=== PATIENT | female | born 1955 | race African-American/Black ===

== ENCOUNTER 2018-12-13 11:08 | Inpatient (IN) ==
[2018-12-13 14:22] LABS: BASO# 0.03 X1000 (0.0-0.2); BASO% 0.7 % (0.0-0.8); EOS# 0.01 X1000 (0.0-0.7); EOS% 0.2 % (0.0-10.0); HEMATOCRIT 37.6 % (37.0-47.0); HEMOGLOBIN 12.3 g/dL (12.0-16.0); LYMPH# 0.63 X1000 (1.2-3.4); LYMPH% 15.3 % (20.5-51.1); MCH 30.4 PG (27-31); MCHC 32.7 g/dL (33-37); MCV 92.8 FL (81-99); MONO# 0.16 X1000 (0.11-0.59); MONO% 3.9 % (1.7-9.3); MPV 10.3 FL (7.4-10.4); NEUT# 3.29 X1000 (1.4-6.5); NEUT% 79.9 % (42.2-75.2); PLT 143 X1000 (130-400); RBC 4.05 XMIL (4.2-5.4); RDW 13.7 % (11.5-14.5); WBC 4.12 X1000 (4.8-10.8)
[2018-12-13] MEDS ORDERED: NS 1,000 ML ONE (14:31)
[2018-12-13 14:57] LABS: ALB/GLOB RATIO 1.3; ALBUMIN 3.8 g/dL (3.5-5.0); CALCIUM 9.8 mg/dL (8.8-10.2); CREATININE 1.2 mg/dL (0.5-0.9); POTASSIUM 3.4 mmol/L (3.5-5.1); TOTAL BILIRUBIN 0.51 mg/dL (0.20-1.00); TOTAL PROTEIN 6.8 g/dL (6.3-8.3)
[2018-12-13] MEDS ORDERED: ZOFRAN IV ONE (15:43)
[2018-12-13] MEDS ORDERED: TORADOL IV ONE (15:43)
[2018-12-13] MEDS ORDERED: NS 1,000 ML IV ONE ×2 (15:43→17:57)
--- NOTE | 2018-12-13 15:57 | EKG Report ---
Test Performed on : 12/13/2018 12:51:44 PM Test Reason : ED. NO order in [place] Blood Pressure : / mmHG Vent. Rate : 068 BPM Atrial Rate : 068 BPM P-R Int : 146 ms QRS Dur : 082 ms QT Int : 430 ms P-R-T Axes : 031 -02 000 degrees QTc Int : 457 ms Normal sinus rhythm. Minimal voltage criteria for LVH, may be normal variant Borderline ECG No previous ECGs available Unconfirmed Result
--- NOTE | 2018-12-13 17:54 | PROVIDER DOCUMENTATION ---
This chart was entered by Idalia Rodriguez Scribe, acting as scribe for Jered Contreras MD. HPI-General Adult - General Chief Complaint: B/P Problems Stated Complaint: HYPOTENSION Time Seen by Provider: 12/13/18 14:05 Source: patient Allergies/Adverse Reactions: Patient Allergies Allergy/AdvReac Type Severity Reaction Status Date / Time No Known Allergies Allergy Verified 12/13/18 11:36 - History of Present Illness -Gen Adult Nature of Presenting Problems: Patient is a 63 year old female who presents to the ED with flu like symptoms. Patient states symptoms of cough, nasal drainage, fever, diarrhea and abdominal pain. Patient states symptoms started this morning. Patient denies nausea and vomiting. Patient's blood pressure was 72/53 on arrival. Patient's daughter states patient has had sick contact to grandchildren. Location of Pain/Injury: reports: abdomen Pain Radiation: reports: no radiation Quality of Pain: reports: aching Severity: reports: mild Onset/Duration: reports: this morning Timing: reports: still present Context/Activities at Onset: reports: light activity Modifying Factors: improves with: nothing Associated Symptoms: reports: cough, diarrhea, fever/chills (fever), sinus congestion/drainage (drainage) Similar Symptoms Previously?: No Recently seen or treated by another doctor?: No Review of Systems - Adult - REVIEW OF SYSTEMS - ADULT Constitutional: reports: fever. denies: chills, fatique Eyes: reports: no symptoms reported Ears, Nose, Mouth & Throat: reports: sinus problem (drainage). denies: ear pain , nose pain, throat pain Cardiovascular: reports: no symptoms reported Respiratory: reports: cough. denies: shortness of breath, wheezing Gastrointestinal: reports: abdominal pain, diarrhea. denies: nausea, vomiting Genitourinary: reports: no symptoms reported Musculoskeletal: reports: no symptoms reported Integumentary: reports: no symptoms reported Neurological: reports: no symptoms reported Psychiatric: reports: no symptoms reported Endocrine: reports: no symptoms reported Hematologic/Lymphatic: reports: no symptoms reported Allergic/Immunologic: reports: no symptoms reported All Other Systems: Reviewed and Negative Past History - Adult - PAST MEDICAL HISTORY-ADULT Review of Records: reports: Nursing Assessment Review, Medications Reviewed, Social history reviewed & non-contributory. Major Childhood Illnesses: reports: denies history Cardiovascular: reports: HTN Respiratory: reports: denies history Gastrointestinal: reports: denies history Obstetrical/Gynecological: reports: denies history Genitourinary: reports: denies history Musculoskeletal: reports: denies history Neurological: reports: denies history Psychiatric: reports: denies history Endocrine/Immune: reports: Diabetes Other Conditions: reports: denies history - PRIOR SURGERIES/PROCEDURES Surgical/Procedure History: reports: reviewed, not pertinent - IMMUNIZATION STATUS Childhood Immunizations: See Nurse Assessment Flu Vaccine: See Nurse Assessment - FAMILY HISTORY Family History: reviewed, not pertinent - SOCIAL HISTORY Smoking: denies Substance Use: denies Physical Exam-General - PHYSICAL EXAM-ADULT Initial Vital Signs Reviewed: Yes - CONSTITUTIONAL General Appearance: alert, no apparent distress - HEAD, EARS, NOSE, MOUTH & THROAT HENMT: moist mucous membranes - NECK Neck: normal inspection - RESPIRATORY Respiratory: chest non-tender, lungs clear, normal breath sounds - CARDIOVASCULAR Cardiovascular: normal peripheral pulses, regular rate, rhythm - GASTROINTESTINAL (ABDOMEN) Abdominal Exam: normal bowel sounds, non tender, soft - MUSCULOSKELETAL Back Exam: normal inspection Extremity: non-tender, normal inspection - SKIN Integumentary: normal color, normal turgor, warm/dry - NEUROLOGIC Neurologic: grossly normal, no motor/sensory deficits - PSYCHIATRIC Psych/Mental Status: normal mood/affect, oriented x 3 Progress - PLAN OF CARE/RESULTS Progress/Plan/Lab Results: Vital Signs - 8 hr 12/13/18 11:31 Temperature 97.2 F L Pulse Rate 70 Respiratory Rate 16 Blood Pressure 75/42 O2 Sat by Pulse Oximetry 90 L Laboratory Results - last 24 hr 12/13/18 13:20 WBC 4.12 L RBC 4.05 L Hgb 12.3 Hct 37.6 MCV 92.8 MCH 30.4 MCHC 32.7 L RDW Std Deviation 13.7 Plt Count 143 MPV 10.3 Immature Gran % (Auto) 0.0 Neut % (Auto) 79.9 H Lymph % (Auto) 15.3 L [place] % (Auto) 3.9 Eos % (Auto) 0.2 Baso % (Auto) 0.7 Immature Gran # (Auto) 0.00 Neut # (Auto) 3.29 Lymph # (Auto) 0.63 L [place] # (Auto) 0.16 Eos # (Auto) 0.01 Baso # (Auto) 0.03 Orders Category Date Time Status Saline Loc DIRECTED Care 12/13/18 14:05 Active NPO Diet 12/13/18 14:05 Active AMYLASE [CHEM] Stat Lab 12/13/18 13:20 Received CBC WITH ELECTRONIC DIFF [HEME] Stat Lab 12/13/18 13:20 Completed COMPREHENSIVE METABOLIC PANEL [CHEM] Stat Lab 12/13/18 13:20 Received LIPASE [CHEM] Stat Lab 12/13/18 13:20 Received URINALYSIS W/POSS RFLX CULT [URINALYSIS] Stat Lab 12/13/18 14:05 Uncollected Result Diagrams: 12/13/18 13:20 12/13/18 13:20 - EKG 1 Time of EKG reading by physician:: 12:51 EKG Read and Signed by:: Jered Contreras EKG Interpretation (*Must complete 3 of following elements*): Abnormal Rate: 68 Rhythm: normal sinus rhythm [place]: normal DC Interval: normal Comments: minimal voltage criteria for LVH, may be normal variant - CONSULTS/PCP/HOSPITALIST Notification #1 *Consult/PCP/Hospitalist*: DR DICKENS Time Discussed: 19:32 Consult Disposition: Admit Departure - Departure Date of Disposition Decision: 12/13/18 Time of Disposition Decision: 19:31 DIAGNOSIS: Diarrhea, Hypotension Disposition: ADMITTED INPATIENT 09 Certified Medical Emergency: Emergent Condition: Stable Referrals and Follow-Ups: None,PCP [NON-STAFF PROVIDER] - - Critical Care Note This patient required my direct & personal management of CC.: Yes Total Time (mins): 36 Critical Care Statement: This patient required my direct personal management to treat or rule out processes, the absence of which, could potentiallly result in sudden, clinically significant life or limb threatening deterioration. Attestation - Physician/ WILL Attestation The physician spent face to face time with patient:: Yes Advanced Practice Provider documentation review:: Supervising physician onsite and consulted in the evaluation and care of this patient. The physician did have a face to face encounter with the patient. This chart was documented by the indicated scribe, (Idalia Rodriguez Scribe) and accurately reflects the services I performed and decisions made by me, Jered Contreras MD, as attested by the provider's signature.
[2018-12-13] MEDS ORDERED: TYLENOL PO PRN (20:28)
[2018-12-13] MEDS ORDERED: ZOFRAN IV PRN (20:28)
[2018-12-13] MEDS: HUMALOG SUBQ SCH (21:00)
--- NOTE | 2018-12-13 21:04 | Diag Imaging Result Doc PS360 ---
EXAM: CT THORAX W/O CONTRAST 12/13/2018 HISTORY: pneumonia suspected TECHNIQUE: This exam was performed using automated exposure control, adjustment of mA or kV according to patient size, and/or use of iterative reconstruction technique. COMMENT: There are no previous studies available for comparison. There are multiple subcutaneous varicosities over the chest and upper abdomen. There is skin thickening over the left breast. This is presumably due to previous lumpectomy and radiation. There are patchy groundglass opacities present in the right upper and lower lobes as well as the middle lobe and to some extent in both lower lobes. There is bronchiectasis and fibrosis present in the anterior left upper lobe. There is nonspecific right paratracheal and aorticopulmonary window nodes. There is subcarinal adenopathy. There are degenerative disc changes in the lumbar thoracic spine. IMPRESSION: Patchy pneumonitis/pneumonia particularly in the right upper lobe. Other nonacute findings as described above. Electronically signed by Garland Bronson 12/13/2018 9:01 PM
[2018-12-13 21:06] LABS: HEMOGLOBIN A1C 5.7 % (4.8-6.0)
[2018-12-13] MEDS: ZOSYN 3.375 GM in NS 50 ML IV SCH (21:47)
[2018-12-13] MEDS: LOVENOX SUBQ SCH (21:47)
--- NOTE | 2018-12-13 23:49 | HISTORY AND PHYSICAL ---
PRIMARY CARE PHYSICIAN: Dr. Shane Petersen. CHIEF COMPLAINT: Near-syncope. HISTORY OF PRESENT ILLNESS: This is a 63-year-old female who presented to the department because of near-syncope. The patient reports that over the last 5 days she was having fever, but she had checked how high was it, along with night sweats and nasal secretion. The patient also was having poor appetite. The patient reports having cough with brownish sputum and some shortness of breath as well. Today, she was feeling dizzy, so she decided to go in to see her primary care doctor, but she was recommended to come to the ER instead. She also reports having mild abdominal pain and diarrhea. So far, she had 3 bowel movements. Nonbloody, no mucous. Patient reports that she has 2 grandsons who are visiting her who were diagnosed with flu. Upon ER evaluation, she was found to have a blood pressure that was 75/42, but it was checked at 11:31 today. I do not see anything charted at the time of evaluation at 8:30 p.m. Actually, that is the reason why she is being admitted to the hospital, for hypotension. Patient reports that she takes medication for high blood pressure but she does not recall which 1, but she said that she takes those in the morning and she did this morning. PAST MEDICAL HISTORY: 1. Hypertension. 2. Borderline diabetes mellitus type 2. According to the patient, she is taking metformin. 3. Anxiety, depression. PAST SURGICAL HISTORY: 1. Left lumpectomy in 2008 for left breast cancer. She received chemotherapy and radiation, and she finished it 6 to 7 years ago, and she visits Dr. William for a follow up on a yearly basis. 2. 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 3. Tubal ligation. ALLERGIES: No known drug allergies. SOCIAL HISTORY: The patient drinks alcohol socially. She does not smoke. She quit a few months ago and she denies using any illicit drugs. She lives with son, and now she has grandchildren visiting her. FAMILY HISTORY: Noncontributory. REVIEW OF SYSTEMS: Eleven systems were reviewed and all symptoms are related to H and P. PHYSICAL EXAMINATION: VITAL SIGNS: Those vitals are from 11:31 a.m., temperature 97.2 degrees, heart rate 70, respiratory rate 16, blood pressure 75/42, O2 saturation 98% on room air. GENERAL: This is a chronically ill-appearing, 63-year-old, female lying in bed, in no acute distress. HEENT: Head is normocephalic, atraumatic. Mucous membranes dry. NECK: No JVD noted. No carotid bruits. No lymphadenopathy. No thyromegaly. CARDIOVASCULAR: S1, S2 heard. No murmurs, gallops, or rubs. Regular rate and rhythm. RESPIRATORY: Minimal coarse breath sounds in both pulmonary bases, but patient is not using any accessory muscles or having work of breathing. ABDOMEN: Soft, a little bit distended. Mildly tenderness to palpation in the left lower quadrant. No signs of peritoneal irritation. EXTREMITIES: No clubbing, cyanosis, or edema. Peripheral pulses present in both legs. NEUROLOGICAL: The patient is alert and oriented x3. Moves 4 extremities. LABORATORY DATA: White cell count 4.2, hemoglobin 10.3, hematocrit 37.6, platelets 143,000. Potassium 3.4, creatinine 1.2. AST 61. Troponin's are okay. ASSESSMENT AND PLAN: 1. Hypotension/flu-like symptoms. We were called for admission for this patient because of hypotension. Upon my examination, I think she may have developed a pneumonia or any other upper or lower respiratory infection but, unfortunately, she has not been ordered any imaging yet, not even a chest x-ray. At this point, considering her low blood pressure, of course, we are going to hold blood pressure medications. We are going to order a CT of the chest with and without contrast and see what it shows. I think empirically I will start using Zosyn 3.375 g IV q.6 hours and breathing treatments as well, considering that she may have some subclinical chronic obstructive pulmonary disease considering her history of smoking, she quit a few months ago but she has been smoking for years, according to her. 2. Hypertension. Actually patient is hypotensive now so we are going to hold all blood pressure medications. At the time of my dictation, the patient did not have any list of medication and she does not recall any medications that she is taking, except that she is taking metformin. 3. Borderline diabetes mellitus type 2. We will check hemoglobin A1c. I will start this patient on sliding scale insulin and Accu-Chek before meals and also at bedtime. 4. Anxiety and depression. We will restart home medication as soon as we get the list from patient. Will instruct the nurse to call pharmacy tomorrow morning to see if we can get her home medication list. 5. Diarrhea. Apparently, she started developing diarrhea this morning, 3 times so far. We will order a stool culture, Clostridium difficile, and Legionella antigen and toxin. Will follow results. 6. Vitamin B12 deficiency. We will check vitamin B12, the patient reports taking tablets for that, she does not recall what strength she takes, so in any case, we will check it and will follow results. Recommendations to follow according to the clinical situation of the patient. cc: Pop Jimenez MD
[2018-12-14] MEDS: TEFLARO 600 MG in NS 250 ML IV SCH ×3 (00:15→23:23)
[2018-12-14 00:54] LABS: URINE SOURCE CLEAN CATCH
[2018-12-14 00:57] LABS: BILIRUBIN URINE SMALL (NEGATIVE); BLOOD URINE SMALL (NEGATIVE); COLOR ORANGE; GLUCOSE URINE NEGATIVE (NEGATIVE); KETONE URINE NEGATIVE (NEGATIVE); LEUKOCYTES URINE NEGATIVE (NEGATIVE); NITRITE URINE NEGATIVE (NEGATIVE); PROTEIN URINE 70 mg/dL (NEGATIVE); TURBIDITY URINE HAZY (CLEAR); UROBILINOGEN URINE 4 mg/dL (NORMAL)
[2018-12-14 01:23] LABS: UR EPITHELIAL CELLS >10 /HPF (<10); URINE BACTERIA 2+ /HPF; URINE RBC <10 /HPF (<10)
[2018-12-14 01:37] LABS: URINE CASTS GRANULAR PRESENT; URINE CRYSTALS NONE SEEN; URINE SMALL ROUND CELLS NONE SEEN; URINE YEAST NONE SEEN
[2018-12-14] MEDS: DEMEROL IV PRN (03:06)
[2018-12-14] MEDS: ZOSYN 3.375 GM in NS 50 ML IV SCH ×4 (03:29→21:31)
[2018-12-14] MEDS: HUMALOG SUBQ SCH ×4 (08:22→21:22)
[2018-12-14] MEDS: NS 1,000 ML IV SCH ×2 (08:45→15:46)
--- NOTE | 2018-12-14 15:01 | PROGRESS NOTE ---
DATE: 12/14/2018 INDICATIONS: Today Ms Corado refers to be feeling a lot better. No more fever. No chills. HISTORY OF PRESENT ILLNESS: Briefly, Ms Corado is a 63-year-old female, who is known to be a breast cancer survivor since 2014. The patient refers to have been feeling fine, but for the past 5 days she has been having cough, generalized weakness, fever and chills. She went to her primary care doctor (Dr. Shane Petersen), and was found to have extremely low blood pressures, so she was advised to come to the emergency department where upon presentation, initial blood pressure was 75/42, pulse was 70, respiration was 16. The patient 's oxygen saturation was about 90%. She was subsequently admitted for further medical care. PHYSICAL EXAMINATION: Vitals: The patient's current blood pressure is 118/73, pulse is 69, respiration is 14, temperature is 98.4 degrees. General exam: Ms. Corado is a 63-year-old female. She was in bed, no distress. HEENT: Mucosa is pink and moist. Anicteric. Acyanotic. Neck: Supple. No JVD. Chest: Air entry was bilaterally reduced. There were diffuse posterior crackles. No rhonchi. Cardiovascular: Regular rate and rhythm. There were no murmurs, no rubs, no gallops. GI: Abdomen was soft, nontender. Bowel sounds present. Extremities: No pedal edema. Distal pulses present. : Unremarkable. BUGGY RUNNER: Patient was awake, alert, oriented. There was no focal neurological deficit. LAB WORKS: From yesterday creatinine was 1.2. We do not have any baseline to compare. IMAGING STUDIES: A CT scan of the chest shows patchy pneumonitis/pneumonia, particularly in the right upper lobe. No other acute findings were described. ASSESSMENT: 1. Septic shock on presentation, which improved with adequate fluid resuscitation. Blood pressure is now back to normal. We are still pending the cultures. 2. Right upper lobe pneumonia. The patient has been started on intravenous antibiotics. We will continue with the same. 3. Renal failure. Creatinine is about 1.2. We do not have a baseline to compare with. We will try to avoid any nephrotoxic, and follow up with a repeat of the renal functions. 4. Hypertension. The patient was on numerous medications at home. All these have been withheld. 5. Diabetes mellitus. The patient was only on metformin. A1c is within normal range. We will control this in the hospital with sliding scale insulin. 6. History of anxiety and depression noted. 7. History of breast cancer survival noted. cc: Jd Cosme MD
[2018-12-14] MEDS: ATIVAN PO SCH ×2 (15:57→21:38)
--- NOTE | 2018-12-14 17:42 | ECHO REPORT ---
ORDER DATE: 12/14/2018 ECHOCARDIOGRAM: INDICATION: Near syncope, hypertension. FINDINGS: 1. Right atrium appears mildly enlarged at 4 cm. 2. Mild tricuspid regurgitation. RV systolic pressure of 47. 3. Normal RV size and systolic function. 4. Mild pulmonic insufficiency. 5. Normal left atrial size at 3.5 cm. 6. No mitral prolapse. Mild mitral regurgitation. 7. Normal LV size, end-diastolic dimension of 4.3 cm. Mild left ventricular hypertrophy with a posterior and interventricular septal wall thickness 1.4 cm each. Normal LV systolic function. Estimated EF of 60% with normal wall motion. 8. Aortic valve opens well, is trileaflet. No evidence of stenosis or insufficiency. 9. Aorta appears normal in visualized segments. 10. No pericardial effusion seen. cc: MD Pop Saavedra MD
[2018-12-14] MEDS: LOVENOX SUBQ SCH (21:32)
[2018-12-15] MEDS: ATIVAN PO SCH ×2 (01:54→11:02)
[2018-12-15] MEDS: NS 1,000 ML IV SCH ×2 (01:56→04:34)
[2018-12-15] MEDS: ZOSYN 3.375 GM in NS 50 ML IV SCH (03:54)
[2018-12-15] MEDS: HUMALOG SUBQ SCH ×4 (06:14→20:24)
[2018-12-15 06:42] LABS: BASO# 0.07 X1000 (0.0-0.2); EOS# 0.01 X1000 (0.0-0.7); EOS% 0.6 % (0.0-10.0); HEMATOCRIT 45.2 % (37.0-47.0); LYMPH# 0.87 X1000 (1.2-3.4); LYMPH% 49.7 % (20.5-51.1); MCH 30.8 PG (27-31); MCHC 33.2 g/dL (33-37); MCV 92.8 FL (81-99); MONO# 0.18 X1000 (0.11-0.59); MONO% 10.3 % (1.7-9.3); MPV 9.8 FL (7.4-10.4); NEUT# 0.62 X1000 (1.4-6.5); NEUT% 35.4 % (42.2-75.2); PLT 82 X1000 (130-400); RBC 4.87 XMIL (4.2-5.4); WBC 1.75 X1000 (4.8-10.8)
[2018-12-15 07:21] LABS: AGAP 15; BUN 5 mg/dL (8-22); CALCIUM 8.5 mg/dL (8.8-10.2); CHLORIDE 108 mmol/L (98-107); COSMO 287; CREATININE 0.6 mg/dL (0.5-0.9); ESTIMATED GFR > 60; GLUCOSE 83 mg/dL (70-104); POTASSIUM 3.3 mmol/L (3.5-5.1); SODIUM 146 mmol/L (136-145); TCO2 23 mmol/L (25-35)
[2018-12-15 07:52] LABS: LYMPHS 70 % (21-51); SEGS 30 % (42-75)
[2018-12-15] MEDS: DUONEB (A & A) INH PRN ×3 (08:51→15:21)
[2018-12-15] MEDS: TESSALON PO SCH ×3 (11:03→18:44)
[2018-12-15] MEDS: SOLU-MEDROL IV SCH ×2 (11:03→18:44)
[2018-12-15] MEDS: 1/2 NS 1,000 ML IV SCH (11:04)
[2018-12-15] MEDS: LEVAQUIN 500 MG/D5W 500 MG/100 ML IVPB IV SCH (11:04)
--- NOTE | 2018-12-15 13:24 | PROGRESS NOTE ---
DATE: 12/15/2018 SUBJECTIVE: This morning, Ms. Corado refers to be feeling a little better. She denies any fever. Still has some generalized joint pains, but no chills. Her cough is also getting better. OBJECTIVE: Vital signs: Blood pressure is 159/84, pulse is 85, respirations 16, temperature 99.1 degrees. The patient is saturating between 91 to 100 percent on 2 L. General: Ms. Corado is a 63- year-old female. She is in bed. She does not seem to be in any cardiopulmonary distress. HEENT: Mucosa is pink and moist. Anicteric. Acyanotic. Neck: Supple. No JVD. Chest: Air entry is bilaterally reduced. There is diffuse end expiratory wheezing posteriorly associated with rhonchi. There is also some inspiratory wet crackles. Cardiovascular: Regular rate and rhythm. There is no murmurs, no rubs, no gallops. Abdomen: Soft, nontender. Bowel sounds present. Extremities: No pedal edema. Central Nervous System: The patient was awake, alert, oriented. There is no focal deficit. LABORATORY DATA: WBC is down to 1.75, hemoglobin is 15.0, platelet count of 82,000. Chemistry: Sodium is 146, potassium is 3.3, chloride is 108, bicarb is 23. Kidney function has normalized to 0.6. CT scan of the chest did show patchy pneumonitis, pneumonia, particularly in the right upper lobe. ASSESSMENT: 1. Septic shock on presentation. This improved with adequate fluid resuscitation. Blood cultures are still pending. 2. Right upper lobe pneumonia. Sputum culture is growing gram-negative rods. The patient is on IV antibiotics. 3. Acute kidney injury, improved. 4. Acute hypoxemic respiratory failure associated with bronchospasms on physical exams. A CT scan of the chest yesterday did show bronchiectasis and fibrosis present in the anterior left upper lobe in a patient who has a very longstanding history of smoking. I think Ms. Corado probably has an undiagnosed chronic obstructive pulmonary disease with bronchiectasis that is also in exacerbation. I will continue with the bronchodilation therapy and antibiotics. I have started her on IV steroids. We will also consult pulmonary medicine to evaluate Ms Corado. Of note the fibrosis could also be related to radiation pneumonitis from long-term breast cancer therapy. 5. Clinical volume depletion improved with adequate fluid resuscitation. Patient's creatinine has normalized. 6. Mild hypernatremia likely due to the fluids so I have changed this to half-normal saline and cut back on the rate to only 75 mL since kidney functions have normalized. 7. Diabetes mellitus controlled. A1c was 5.7 on presentation. 8. History of breast cancer. The patient refers that she normally follows up with her oncologist and she has been declared totally cured. 9. Bicytopenia (leukopenia with thrombocytopenia). The patient's differential shows extreme lymphocytosis. This will be concerning for any myeloproliferative disorder. I have ordered LDH and beta microglobulin. We would do flow cytometry and get Heme-Onc to evaluate Ms. Corado. cc: Jd Cosme MD
[2018-12-15 14:05] LABS: FLOW CYTOMETERY SOURCE WHOLE BLOOD; LEUKEMIA LYMPHOMA BY FLOW REFERRED FOR TESTING
[2018-12-15] MEDS: MAXIPIME 2 GM in NS 100 ML IV SCH ×2 (15:02→23:01)
[2018-12-15] MEDS: DEMEROL IV PRN ×2 (15:16→23:01)
[2018-12-15] MEDS: LOVENOX SUBQ SCH (20:10)
--- NOTE | 2018-12-15 20:40 | PULMONOLOGY CONSULTATION ---
DATE: 12/15/2018 REQUESTING PHYSICIAN: Jd Cosme MD. REASON FOR CONSULTATION: Hypoxemic respiratory failure and COPD exacerbation. HISTORY OF PRESENT ILLNESS: Ms. Corado is a 63-year-old black female with a long history of tobacco use (nonsmoker x2 months), remote history of breast cancer, who reports she was at her baseline health until approximately 1 week ago when she developed fevers and chills. She had body aches, and 2 grandchildren also had influenza. This improved, but she developed increased cough with increased sputum production. She presented to Dr. Surya Brown' office with hypotension, and she was referred to the emergency room. PAST MEDICAL HISTORY/PROBLEM LIST: 1. Breast cancer, status post lumpectomy, chemotherapy, and radiation in 2008. 2. Status post left eye removal. 3. Hypertension. 4. Diabetes mellitus. 5. Anxiety/depressive disorder. SOCIAL HISTORY: Occasional alcohol use. The patient reports she stopped smoking 2 months ago. FAMILY HISTORY: Notable for recent family members with influenza. PHYSICAL EXAMINATION: General: Reveals a well-developed, well-nourished female resting comfortably, in no distress. Vital signs: BP 149/94, heart rate 96, respiratory rate 20, oxygen saturation 100% on nasal cannula. HEENT: Pupils are equal and reactive. Oropharynx is clear. Neck: Supple. Chest: Reveals scattered rhonchi bilaterally. Cardiac Exam: S1, S2. Abdomen: Obese and soft. Extremities: Without edema. LABORATORIES: CT scan of the thorax is reviewed. The patient has ground-glass changes predominantly in the right upper and middle lobe, with some bronchiectasis and fibrosis noted in the anterior left upper lobe. Microbiology is notable for a gram-negative ayan in her sputum. Influenza screen was negative. White blood count 1.75 and decreased from 4.12, hemoglobin 15.0, platelet count 82,000. IMPRESSION: A 63-year-old with chronic obstructive pulmonary disease, probable recent influenza infection, exacerbation of bronchiectasis, and transient hypotension, with recent discontinuation of tobacco use. RECOMMENDATIONS: 1. Continue broad-spectrum gram-negative coverage pending results of sputum cultures. 2. Continue bronchodilators. 3. Check immunoglobulin levels. 4. Continue to follow white blood count. The patient may need an oncology evaluation. This may be postviral in nature. cc: Preston Brown MD
[2018-12-16] MEDS ORDERED: CATAPRES PO ONE (01:11)
[2018-12-16] MEDS: SOLU-MEDROL IV SCH ×3 (02:44→22:17)
[2018-12-16 06:51] LABS: BASO# 0.04 X1000 (0.0-0.2); BASO% 2.6 % (0.0-0.8); HEMATOCRIT 39.9 % (37.0-47.0); HEMOGLOBIN 13.1 g/dL (12.0-16.0); LYMPH% 46.4 % (20.5-51.1); MCH 29.8 PG (27-31); MCHC 32.8 g/dL (33-37); MCV 90.7 FL (81-99); MONO# 0.09 X1000 (0.11-0.59); MPV 9.7 FL (7.4-10.4); NEUT# 0.68 X1000 (1.4-6.5); PLT 126 X1000 (130-400); RDW 13.1 % (11.5-14.5); WBC 1.51 X1000 (4.8-10.8)
[2018-12-16] MEDS: HUMALOG SUBQ SCH ×4 (07:30→22:18)
[2018-12-16 07:42] LABS: AGAP 14; ALB/GLOB RATIO 0.9; ALBUMIN 3.7 g/dL (3.5-5.0); ALKALINE PHOSPHATASE 62 U/L (32-104); BUN 7 mg/dL (8-22); CHLORIDE 98 mmol/L (98-107); COSMO 280; CREATININE 0.5 mg/dL (0.5-0.9); ESTIMATED GFR > 60; GLUCOSE 144 mg/dL (70-104); GOT 25 U/L (10-30); GPT 18 U/L (10-36); POTASSIUM 2.9 mmol/L (3.5-5.1); SODIUM 140 mmol/L (136-145); TCO2 28 mmol/L (25-35); TOTAL BILIRUBIN 0.48 mg/dL (0.20-1.00); TOTAL PROTEIN 7.6 g/dL (6.3-8.3)
[2018-12-16] MEDS ORDERED: KLOR-CON PO ONE (08:07)
[2018-12-16] MEDS ORDERED: MAGNESIUM SULFATE 2 GM/S.W.I. 2 GM/50 ML IVPB IV ONE (08:30)
[2018-12-16 08:34] LABS: LYMPHS 50 % (21-51); MONO 6 % (1-9); SEGS 40 % (42-75)
[2018-12-16] MEDS: CATAPRES PO SCH ×2 (09:09→22:17)
[2018-12-16] MEDS: TESSALON PO SCH ×3 (09:09→15:59)
[2018-12-16] MEDS: TENORMIN PO SCH (09:10)
[2018-12-16] MEDS: VASOTEC PO SCH (09:10)
[2018-12-16] MEDS: LEVAQUIN 500 MG/D5W 500 MG/100 ML IVPB IV SCH (09:11)
[2018-12-16] MEDS: CELEXA PO SCH (09:11)
[2018-12-16] MEDS: ATIVAN PO SCH (09:12)
[2018-12-16] MEDS: CARDIZEM CD PO SCH (09:33)
[2018-12-16] MEDS: POTASSIUM CHLORIDE 20 MEQ/SWI 20 MEQ/100 ML IVPB IV SCH ×2 (14:04→19:50)
[2018-12-16] MEDS: 1/2 NS 1,000 ML IV SCH (14:04)
[2018-12-16] MEDS: MAXIPIME 2 GM in NS 100 ML IV SCH (14:09)
--- NOTE | 2018-12-16 15:17 | PROGRESS NOTE ---
DATE: 12/16/2018 SUBJECTIVE: This morning Ms. Corado refers to be feeling a lot better. The daughter was at the bedside at the time of the encounter. She denies a lot of coughing. OBJECTIVE: Vitals: Blood pressure is 174/99, pulse of 70, respiration is 18, temperature 98.3 degrees, patient was saturating about 95%. General: Ms. Corado is a 63-year- old female she is in bed, did not seems to be in any cardiopulmonary distress. Mucosa is pink and moist. Anicteric. Acyanotic. Neck: Supple. Chest: Good entry bilateral. There are still some diffuse expiratory wheezing with mild rhonchi but for most part the lung exam sounds a lot better than yesterday and the day before. Cardiovascular: Regular rate and rhythm. There is no murmurs, no rubs, no gallops. Abdomen: Soft, nontender. Bowel sounds were present. Extremities: No pedal edema. SPA COORDINATOR: Patient was sleepy but easily arousable. No focal deficit. LABORATORY DATA: WBC is 1.51, hemoglobin is 13.1, platelet count is 126,000, there is 40% of neutrophils and 50% of lymphocytes, 4% of atypical lymphocytes. Chemistry is also reviewed. Potassium was 2.9 rest of chemistry was unremarkable. So far sputum culture has shown Enterobacter cloacae species which is sensitive with the current antibiotic that the patient is on. Urine culture has also grown gram-negative ayan, we are still awaiting for the ID and sensitivity. ASSESSMENT: 1. Transient episode of hypotension presumably septic shock. Patient improved resuscitation. So far blood cultures have been negative but sputum culture and urine culture are positive. 2. Right upper lobe pneumonia with sputum culture positive for Enterobacter cloacae, patient is currently on intravenous antibiotics. 3. Acute hypoxemic respiratory failure secondary to combination of chronic obstructive pulmonary disease and bronchiectasis exacerbation and right upper lobe pneumonia. 4. Chronic obstructive pulmonary disease exacerbation. Patient has been evaluated by Pulmonary Medicine. Will continue with the bronchodilation therapy, steroids and antibiotics. 5. Clinical volume depletion improved with intravenous fluids. Creatinine has normalized. 6. Diabetes mellitus, will continue with sliding scale, A1c is 5.7. 7. History of breast cancer. Patient follows up with Dr. William. 8. Bicytopenia (leukopenia with thrombocytopenia with lymphocytosis). This could be viral in nature however Ms Corado also has remote history of breast cancer treated with radiation and chemo which puts her at a higher risk of myeloproliferative disorder. There is 4% of atypical lymphocytes on peripheral smear. We would wait on the flow cytometry and we would also recommend Ms Corado follows up diligently with her hematology oncologist Dr. William after discharge. So in general Ms. Corado seems to be doing a lot better. She is day 3 in hospital. We are going to continue with the current antibiotic coverage, once we know the ID and sensitivity of the gram-negative ayan in the urine we can make changes to her current antibiotics to something oral and get her home. We are going to continue to replace her abnormal electrolytes per protocol and encourage that she follows up with her primary agricultural research engineer oncologist on outpatient base to review the current hematological abnormalities. I have also restarted her blood pressure medications this morning which were withheld on admission because of hypotension. Disposition. I think if we get to know the ID and sensitivity of the urine culture by tomorrow and Ms Corado is clinically stable we can discharge her to follow up with Pulmonary and Hematology/Oncology as outpatient. cc: Jd Cosme MD [facility]
[2018-12-16] MEDS: DEMEROL IV PRN ×2 (16:01→22:18)
--- NOTE | 2018-12-16 17:04 | PULMONOLOGY PROGRESS NOTE ---
DATE: 12/16/2018 SUBJECTIVE: The patient is awake, alert, and conversant. She reports she feels significantly better. She continues to have cough with decreasing sputum. OBJECTIVE: Vital signs: The patient has been afebrile for the last 24 hours. Blood pressure 171/102, heart rate 74, respiratory rate 16, oxygen saturation 95%. HEENT: Pupils are equal and reactive. Oropharynx is clear. Neck: Supple. Chest: Reveals crackles left apex. Cardiac Exam: S1, S2. Abdomen: Soft and without hepatosplenomegaly. Extremities: Without edema. LABORATORIES: White blood count 1.51, hemoglobin 13.1, platelet count 126,000. Sodium 140, potassium 2.9, chloride 98, bicarbonate 28, BUN 7, creatinine 0.5. MICROBIOLOGY: Sputum culture is revealing Enterobacter cloacae species. Urine cultures is pending. IMPRESSION: This is a 63-year-old with: 1. Chronic obstructive pulmonary disease. 2. Recent influenza infection. 3. Exacerbation of bronchiectasis. 4. Leukopenia with continued decline. 5. Thrombocytopenia with marginal improvement. RECOMMENDATIONS: 1. Continue broad-spectrum antibiotics, to be adjusted if urine culture is not covered under current regimen. 2. Continue bronchodilators. 3. Await lymphocyte flow pattern and immunoglobulin levels. 4. Continue to follow platelet count and white blood count. cc: Preston Brown MD
[2018-12-16] MEDS: LOVENOX SUBQ SCH (22:18)
[2018-12-17] MEDS: MAXIPIME 2 GM in NS 100 ML IV SCH ×2 (02:45→14:42)
[2018-12-17] MEDS: SOLU-MEDROL IV SCH ×2 (03:20→12:25)
[2018-12-17 06:14] LABS: BASO# 0.02 X1000 (0.0-0.2); BASO% 0.4 % (0.0-0.8); HEMATOCRIT 41.3 % (37.0-47.0); HEMOGLOBIN 13.4 g/dL (12.0-16.0); IMM GRAN# 0.02 X1000 (0.0-0.04); IMM GRAN% 0.4 % (0.0-0.5); LYMPH# 0.88 X1000 (1.2-3.4); LYMPH% 18.2 % (20.5-51.1); MCH 29.7 PG (27-31); MCHC 32.4 g/dL (33-37); MCV 91.6 FL (81-99); MONO# 0.19 X1000 (0.11-0.59); MONO% 3.9 % (1.7-9.3); MPV 10.1 FL (7.4-10.4); NEUT# 3.72 X1000 (1.4-6.5); NEUT% 77.1 % (42.2-75.2); PLT 147 X1000 (130-400); RBC 4.51 XMIL (4.2-5.4); RDW 13.2 % (11.5-14.5); WBC 4.83 X1000 (4.8-10.8)
[2018-12-17] MEDS: HUMALOG SUBQ SCH ×4 (06:49→23:50)
[2018-12-17 06:52] LABS: AGAP 13; BUN 19 mg/dL (8-22); CALCIUM 8.7 mg/dL (8.8-10.2); CHLORIDE 104 mmol/L (98-107); COSMO 283; CREATININE 0.5 mg/dL (0.5-0.9); ESTIMATED GFR > 60; GLUCOSE 156 mg/dL (70-104); POTASSIUM 4.4 mmol/L (3.5-5.1); SODIUM 139 mmol/L (136-145); TCO2 22 mmol/L (25-35)
[2018-12-17] MEDS: DUONEB (A & A) INH PRN (07:30)
[2018-12-17] MEDS: 1/2 NS 1,000 ML IV SCH ×3 (09:10→21:23)
[2018-12-17] MEDS: LEVAQUIN 500 MG/D5W 500 MG/100 ML IVPB IV SCH (09:10)
[2018-12-17] MEDS: TESSALON PO SCH ×4 (09:12→21:23)
[2018-12-17] MEDS: VASOTEC PO SCH (09:12)
[2018-12-17] MEDS: CARDIZEM CD PO SCH (09:12)
[2018-12-17] MEDS: CATAPRES PO SCH ×2 (09:12→21:23)
[2018-12-17] MEDS: CELEXA PO SCH (09:12)
[2018-12-17] MEDS: TENORMIN PO SCH (09:12)
[2018-12-17] MEDS: ATIVAN PO SCH (09:19)
[2018-12-17] MEDS: DEMEROL IV PRN (12:26)
--- NOTE | 2018-12-17 17:48 | PROGRESS NOTE ---
DATE: 12/17/2018 INTERVAL HISTORY: Patient with no further hypotension. Still with some slight nonproductive cough, but otherwise respiratory status much improved with essentially no dyspnea and saturating well on room air. No new complaints. No acute events overnight. REVIEW OF SYSTEMS: A 12 point review of system negative except as per Interval History. LABORATORY DATA: WBC 4.8, hemoglobin 13, hematocrit 41.3, platelets 147,000. Basic metabolic panel unremarkable, aside from glucose 156, calcium 8.7. VITALS: T-max 98.6 degrees, pulse 70, respirations 16, blood pressure 127/65, O2 saturation 96% on room air. PHYSICAL EXAMINATION: General: No acute distress. Vitals: As above. HEENT: Normocephalic, atraumatic. Moist mucous membranes. Neck: No cervical adenopathy. Cardiovascular: RRR. no murmurs Lungs: No further wheezing. Lungs are clear to auscultation at this point. Abdomen: Soft, nontender, nondistended. Bowel sounds positive. Extremities: Peripheral pulses intact. No clubbing, cyanosis, or edema. Neurologic: Cranial nerves grossly intact. No focal deficits identified. Psychiatric: Normal mood and affect. Awake, alert, oriented x3. Skin: No new rashes or lesions identified. ASSESSMENT AND PLAN: 1. Acute hypoxemic respiratory failure secondary to pneumonia and chronic obstructive pulmonary disease (COPD) exacerbation: The patient is markedly improved with antibiotics and steroids. No further wheezing. No further hypoxia. Dyspnea resolved. We will wean steroids down. Likely discharge tomorrow on p.o. doxycycline or Levaquin after last dose of cefepime for resistant UTI as below. Can likely be discharge with Medrol Dosepak and antibiotics as above tomorrow. 2. Hypertension: Likely related to infection and severe sepsis as above, but never required pressors. Improved with fluids. Now resolved. 3. Diabetes mellitus: A1c 5.7. Overall reasonable control of blood sugar with only occasional mild elevations. 4. Leukopenia and thrombocytopenia: Now significantly improved. Very low suspicion for malignancy. She follows with Dr. William for her anemia, and I will have him follow up with her as an outpatient. 5. Urinary tract infection (UTI): Patient with urine culture growing Pseudomonas, resistant to Levaquin. Although only 20,000 CFU. Given resistance to oral medications, we will give 1 additional dose of cefepime, which should be in the early a.m. tomorrow. After this, antibiotics for urinary tract infection can likely be discontinued, and she hopefully can be try p.o. antibiotics to finish treatment for her pneumonia. 6. Deep vein thrombosis (DVT) prophylaxis: Lovenox. [facility]
[2018-12-17] MEDS: LOVENOX SUBQ SCH (21:23)
[2018-12-18] MEDS: MAXIPIME 2 GM in NS 100 ML IV SCH ×2 (01:30→13:02)
[2018-12-18] MEDS: 1/2 NS 1,000 ML IV SCH (06:18)
[2018-12-18 06:42] LABS: BASO# 0.01 X1000 (0.0-0.2); BASO% 0.2 % (0.0-0.8); HEMATOCRIT 41.2 % (37.0-47.0); HEMOGLOBIN 13.5 g/dL (12.0-16.0); IMM GRAN# 0.03 X1000 (0.0-0.04); IMM GRAN% 0.5 % (0.0-0.5); LYMPH# 0.82 X1000 (1.2-3.4); LYMPH% 14.1 % (20.5-51.1); MCH 29.7 PG (27-31); MCHC 32.8 g/dL (33-37); MCV 90.7 FL (81-99); MONO% 6.9 % (1.7-9.3); MPV 10.2 FL (7.4-10.4); NEUT# 4.54 X1000 (1.4-6.5); NEUT% 78.3 % (42.2-75.2); PLT 167 X1000 (130-400); RBC 4.54 XMIL (4.2-5.4); RDW 13.1 % (11.5-14.5)
[2018-12-18] MEDS: HUMALOG SUBQ SCH ×2 (07:24→12:00)
--- NOTE | 2018-12-18 07:49 | Diag Imaging Result Doc PS360 ---
CHEST-2 VIEWS - 12/18/2018 INDICATION: abnormal exam COMPARISON: 07/20/2018 FINDINGS: Stable left perihilar pulmonary scarring. Stable surgical clips in the left axilla and left breast. No new or focal infiltrates. Stable mild cardiomegaly. IMPRESSION: No change from prior. Electronically signed by Lennox Holloway 12/18/2018 7:47 AM
--- NOTE | 2018-12-18 08:29 | PULMONOLOGY PROGRESS NOTE ---
DATE: 12/17/2018 SUBJECTIVE: The patient is awake, alert, and conversant. She reports she continues to feel better. OBJECTIVE: Vital Signs: The patient is afebrile. Blood pressure 138/86, heart rate 54, respiratory rate 18, oxygen saturation 97% on room air. HEENT: Pupils are equal and reactive. Oropharynx is clear. Neck: Supple. Chest: Reveals good air entry bilaterally. Cardiac: S1, S2. Abdomen: Soft without hepatosplenomegaly. Extremities: Without edema. LABORATORIES: White blood count is 4.83, hemoglobin 13.4, platelet count 147,000. Chemistry: Sodium 139, potassium 4.4, chloride 104, bicarbonate 22, BUN 19, creatinine 0.5, glucose 156. Flow cytometry is pending. Immunoglobulin levels are pending. IMPRESSION: A 63-year-old with: 1. Chronic obstructive pulmonary disease. 2. Exacerbation of bronchiectasis. 3. Leukopenia with recovery of white blood count. 4. Thrombocytopenia with recovery of platelets. 5. Recent influenza vaccine. 6. Enterobacter species in her sputum which is sensitive to quinolone. 7. Pseudomonas aeruginosa in her urine which is resistant to quinolones. RECOMMENDATION: 1. Check continue current antibiotics. 2. Continue daily CBCs. 3. Continue bronchial hygiene. 4. Await immunoglobulin levels. Would replace immunoglobulins if I found them low in this patient. 5. Two-view chest x-ray tomorrow. cc: Preston Brown MD
[2018-12-18] MEDS ORDERED: PREDNISONE PO SCH (09:00)
[2018-12-18] MEDS: VASOTEC PO SCH (09:17)
[2018-12-18] MEDS: TENORMIN PO SCH (09:17)
[2018-12-18] MEDS: DEMEROL IV PRN (09:18)
[2018-12-18] MEDS: ATIVAN PO SCH (09:18)
[2018-12-18] MEDS: CARDIZEM CD PO SCH (09:18)
[2018-12-18] MEDS: LEVAQUIN 500 MG/D5W 500 MG/100 ML IVPB IV SCH (09:18)
[2018-12-18] MEDS: CELEXA PO SCH (09:18)
[2018-12-18] MEDS: CATAPRES PO SCH (09:18)
[2018-12-18] MEDS: TESSALON PO SCH ×2 (09:18→13:02)
[2018-12-18 11:40] VITALS: BP 122/74
--- NOTE | 2018-12-19 08:30 | DISCHARGE SUMMARY ---
ADMISSION DATE: 12/13/2018 DISCHARGE DATE: 12/18/2018 CONSULTATIONS: Dr. Preston Brown with Pulmonology. PERTINENT PROCEDURES: 1. Chest CT: Patchy pneumonitis, pneumonia, particularly in the right upper lobe. 2. Echocardiogram: EF of 60%. 3. Final chest x-ray shows no change from prior. DISCHARGE DIAGNOSES: 1. Acute hypoxemic respiratory failure secondary to pneumonia and chronic obstructive pulmonary disease exacerbation. The patient has markedly improved with antibiotics and steroids. No further wheezing. No hypoxia. Dyspnea is resolved. She will be discharged home on Omnicef and Tessalon Perles. 2. Hypertension, likely related to infections and severe sepsis, but never required pressors. She improved her hypotension, likely related to infection and severe sepsis, but never required pressors. She improved with fluids, now resolved. 3. Sepsis secondary to pneumonia, resolved. 4. Diabetes mellitus, A1c 5.7 and reasonable control of blood sugars. 5. Leukopenia and thrombocytopenia, significantly improved. She follows Dr. William for her anemia and will follow up with him as an outpatient. 6. Urinary tract infection. Patient's urine culture grew out Pseudomonas resistant to Levaquin. She was given 1 additional dose of Cefepime and will not require any p.o. antibiotics for her urinary tract infection. HOSPITAL COURSE: Briefly, Ms. Corado is a 63-year-old female with a long history of tobacco use. She quit smoking 2 months ago. Remote history of breast cancer. One week prior to this admission developed some fevers and chills, body aches, and she developed increase in cough with increased sputum production. She went to see her PCP, Dr. Surya Brown office. She was noted to be hypotensive and was referred to the emergency room and was admitted for COPD exacerbation, probable recent influenza infection, exacerbation of her bronchial stasis with pneumonia and sepsis with hypotension. She recovered quite nicely with IV resuscitation. She was placed on broad-spectrum antibiotics. She was found to have a UTI that grew out Pseudomonas. She was continued on 1 extra day of IV antibiotics. She was weaned from her IV steroids. Her respiratory status has improved and she will be discharged back home. VITAL SIGNS: Temperature is 98 degrees, heart rate 76, respirations 18, blood pressure 122/74, O2 is 96% on room air. DISCHARGE DIET: Diabetic. DISCHARGE MEDICATIONS: 1. Pravachol 40 mg p.o. at bedtime. 2. Atenolol 50 mg p.o. daily. 3. Celexa 40 mg p.o. daily. 4. Clonidine 0.2 mg p.o. b.i.d. 5. Diltiazem ER 300 mg p.o. daily. 6. Enalapril 20 mg p.o. daily. 7. Hydrochlorothiazide 12.5 mg p.o. daily. 8. Lorazepam 1 mg p.o. daily. 9. Glucophage XR 500 mg p.o. b.i.d. 10. Tessalon Perles 100 mg p.o. t.i.d. 11. Omnicef 300 mg p.o. b.i.d. for 7 more days. FOLLOW-UP: Ms. Corado is being discharged back home with self care. She is to follow up with her PCP as well as her regular nipping machine operator, Dr. William, secondary to her improved thrombocytopenia. She is take all medications as prescribed. She can return to the ED or call 911 for any worsening of symptoms. Dictated by SATYA Thomson for Pop Jimenez MD Addendum: Patient seen and examined by myself. Agree with SATYA note. It reflects my assessment and plan. Patient is being discharged from hospital in stable condition. Will be seen by her primary nipping machine operator Dr. William in a week. cc: MD Surya Clayton MD James E. Boyle, MD MTDD
== END 2018-12-18 15:48 | disposition home or self-care (01) | DRG 871 ==
LOC: SUPCPDRO → ED 11:08 → SUATTDRO 22:38 → EDIPHOLD 22:38 → 4N 12-14 14:19
PROVIDERS: ATTEND Internal Medicine
CPT/HCPCS: 71020; 71046; 71250; 80048; 80053; 81001; 82150; 82232; 82784; 82948; 83036; 83605; 83615; 83690; 84155; 84165; 84484; 85025; 86334; 87040; 87045; 87046; 87070; 87077; 87088; 87186; 87205; 87275; 87276; 87324; 87449; 87804; 88184; 88185; 89055; 93005; 93306; 94640; 94761; 94762; 94799; 96361; 96365; 96366; 96367; 96372; 96375; 97162; 97530; 99285; 99291; A9270; J0692; J0712; J1650; J1885; J1956; J2175; J2405; J2543; J2920; J3475; J3480; J7030; J7050; J7506; J7512; XXXXX